=== PATIENT | male | born 1995 | race Caucasian/White ===

== ENCOUNTER 2017-08-13 11:44 | Emergency (ER) | payer SELFPAY ==
[~2017-08-13] VITALS: Ht 180.3 cm; Wt 120.7 kg
[2017-08-13] MEDS ORDERED: NS(*) 0.9% 1000 ML BAG 1,000 ML IV ONE (11:57)
--- NOTE | 2017-08-13 11:59 | ER Report ---
History and Physical Time Seen By MD: 11:58 Hx. of Stated Complaint: upper abdominal pain HPI/ROS 21 year old male h/o gerd on prn ranitadine with upper abd pain x 2 days. stopped caffeine but this did not help. nausea mild pain Allergies: Coded Allergies: Penicillins (Verified Allergy, Intermediate, HIVES, 08/13/17) loracarbef (Verified Allergy, Intermediate, 08/13/17) red dye (Verified Allergy, Unknown, 08/13/17) Home Meds Active Scripts Ondansetron (ZOFRAN ODT) 4 Mg Tab.rapdis, 4 MG PO Q6H Y for NAUSEA/VOMITING, # 20 TAB.SANDRA Prov:YULI MCKEON APRN-Remy 08/13/17 Hydrocodone Bit/Acetaminophen (NORCO 5-325 TABLET) 1 Each Tablet, 1 EACH PO every 4-6 hours for PAIN, #30 TAB Prov:YULI MCKEON APRN-Remy 08/13/17 Reported Medications Ranitidine Hcl (ZANTAC) 150 Mg Tablet, 150 MG PO PRN, TAB 08/13/17 Melatonin (MELATONIN) 1 Mg Tablet, 1 MG PO PRN 08/13/17 Past Medical/Surgical History pancreatitis,2 years ago, gerd Reviewed Nurses Notes: Yes Old Medical Records Reviewed: Yes Hx Smoking: No Exposure to Second Hand Smoke?: No Hx Substance Use Disorder: No Hx Alcohol Use: No Family History of: Other Constitutional Vital Sign - Last 24 Hours 08/13/17 08/13/17 08/13/17 08/13/17 11:57 13:29 13:34 13:49 Temp 98.7 Pulse 100 93 87 Resp 20 B/P (MAP) 143/93 117/76 (90) Pulse Ox 93 92 93 93 O2 Delivery Room Air 08/13/17 08/13/17 08/13/17 08/13/17 14:00 14:04 14:19 14:30 Pulse 83 80 B/P (MAP) 107/61 (76) 128/76 (93) Pulse Ox 93 93 08/13/17 14:48 Pulse 83 Resp 17 B/P (MAP) 129/83 (98) Pulse Ox 92 O2 Delivery Room Air Physical Exam 21-year-old male alert and oriented mild distress HEENT has normocephalic/ atraumatic tympanic membranes are non-reddened throat is non-reddened neck is supple no JVD heart rate is regular no murmurs rubs or gallops lungs clear to auscultation abdomen is obese mild tenderness mid epigastric bowel sounds 4 quadrants moves all extremities no peripheral edema Medical Decision Making Data Points Result Diagram: 08/13/17 1201 08/13/17 1201 Laboratory Hematology Test 08/13/17 11:55 08/13/17 12:01 Urine Color Yellow Urine Clarity Clear Urine pH 6.0 pH (4.8-9.5) Urine Specific [place] 1.025 Urine Protein Negative mg/dL (NEGATIVE) Urine Glucose (UA) Negative mg/dL (NEGATIVE) Urine Ketones Negative mg/dL (NEGATIVE) Urine Blood Trace lysed (NEGATIVE) Urine Nitrite Negative (NEGATIVE) Urine Bilirubin Negative (NEGATIVE) Urine Urobilinogen 0.2 mg/dL (0.2-1.9) Urine Leukocyte Esterase Negative (NEGATIVE) Urine RBC Rare /HPF (0-2/HPF) Urine WBC None /HPF (0-5/HPF) Urine Squamous Epithelial Cells Rare /LPF (</=FEW) Urine Bacteria Negative /HPF (NONE-FEW) Urine Mucus None /HPF (NONE-FEW) Red Blood Count 5.36 M/uL (4.00-5.60) Mean Corpuscular Volume 87.7 fL (80.0-96.0) Mean Corpuscular Hemoglobin 29.8 pg (26.0-33.0) Mean Corpuscular Hemoglobin Concent 34.0 g/dL (32.0-36.0) Red Cell Distribution Width 13.1 % (11.5-14.5) Mean Platelet Volume 8.5 fL (7.2-11.1) Neutrophils (%) (Auto) 61.8 % (39.4-72.5) Lymphocytes (%) (Auto) 27.7 % (17.6-49.6) Monocytes (%) (Auto) 8.0 % (4.1-12.4) Eosinophils (%) (Auto) 1.7 % (0.4-6.7) Basophils (%) (Auto) 0.8 % (0.3-1.4) Nucleated RBC Relative Count (auto) 0.5 /100WBC Neutrophils # (Auto) 7.5 K/uL (2.0-7.4) Lymphocytes # (Auto) 3.4 K/uL (1.3-3.6) Monocytes # (Auto) 1.0 K/uL (0.3-1.0) Eosinophils # (Auto) 0.2 K/uL (0.0-0.5) Basophils # (Auto) 0.1 K/uL (0.0-0.1) Nucleated RBC Absolute Count (auto) 0.07 K/uL Sodium Level 137 mmol/L (137-145) Potassium Level 4.3 mmol/L (3.5-5.0) Chloride Level 103 mmol/L (98-107) Carbon Dioxide Level 26 mmol/L (22-30) Blood Urea Nitrogen 17 mg/dl (9-21) Creatinine 1.10 mg/dl (0.66-1.25) Glomerular Filtration Rate Calc > 60.0 Random Glucose 89 mg/dl (75-110) Lactate 1.4 mmol/L (0.7-2.1) Calcium Level 9.6 mg/dl (8.4-10.2) Total Bilirubin 0.6 mg/dl (0.2-1.3) Aspartate Amino Transf (AST/SGOT) 30 U/L (0-35) Alanine Aminotransferase (ALT/SGPT) 47 U/L (0-56) Alkaline Phosphatase 80 U/L (0-126) Total Protein 7.2 gm/dl (6.3-8.2) Albumin 4.1 g/dl (3.5-5.0) Amylase Level 105 U/L (0-110) Lipase 477 U/L (23-300) Chemistry Test 08/13/17 11:55 08/13/17 12:01 Urine Color Yellow Urine Clarity Clear Urine pH 6.0 pH (4.8-9.5) Urine Specific [place] 1.025 Urine Protein Negative mg/dL (NEGATIVE) Urine Glucose (UA) Negative mg/dL (NEGATIVE) Urine Ketones Negative mg/dL (NEGATIVE) Urine Blood Trace lysed (NEGATIVE) Urine Nitrite Negative (NEGATIVE) Urine Bilirubin Negative (NEGATIVE) Urine Urobilinogen 0.2 mg/dL (0.2-1.9) Urine Leukocyte Esterase Negative (NEGATIVE) Urine RBC Rare /HPF (0-2/HPF) Urine WBC None /HPF (0-5/HPF) Urine Squamous Epithelial Cells Rare /LPF (</=FEW) Urine Bacteria Negative /HPF (NONE-FEW) Urine Mucus None /HPF (NONE-FEW) White Blood Count 12.1 k/uL (4.5-11.0) Red Blood Count 5.36 M/uL (4.00-5.60) Hemoglobin 16.0 g/dL (14.0-18.0) Hematocrit 46.9 % (42.0-52.0) Mean Corpuscular Volume 87.7 fL (80.0-96.0) Mean Corpuscular Hemoglobin 29.8 pg (26.0-33.0) Mean Corpuscular Hemoglobin Concent 34.0 g/dL (32.0-36.0) Red Cell Distribution Width 13.1 % (11.5-14.5) Platelet Count 277 K/uL (150-450) Mean Platelet Volume 8.5 fL (7.2-11.1) Neutrophils (%) (Auto) 61.8 % (39.4-72.5) Lymphocytes (%) (Auto) 27.7 % (17.6-49.6) Monocytes (%) (Auto) 8.0 % (4.1-12.4) Eosinophils (%) (Auto) 1.7 % (0.4-6.7) Basophils (%) (Auto) 0.8 % (0.3-1.4) Nucleated RBC Relative Count (auto) 0.5 /100WBC Neutrophils # (Auto) 7.5 K/uL (2.0-7.4) Lymphocytes # (Auto) 3.4 K/uL (1.3-3.6) Monocytes # (Auto) 1.0 K/uL (0.3-1.0) Eosinophils # (Auto) 0.2 K/uL (0.0-0.5) Basophils # (Auto) 0.1 K/uL (0.0-0.1) Nucleated RBC Absolute Count (auto) 0.07 K/uL Glomerular Filtration Rate Calc > 60.0 Lactate 1.4 mmol/L (0.7-2.1) Calcium Level 9.6 mg/dl (8.4-10.2) Total Bilirubin 0.6 mg/dl (0.2-1.3) Aspartate Amino Transf (AST/SGOT) 30 U/L (0-35) Alanine Aminotransferase (ALT/SGPT) 47 U/L (0-56) Alkaline Phosphatase 80 U/L (0-126) Total Protein 7.2 gm/dl (6.3-8.2) Albumin 4.1 g/dl (3.5-5.0) Amylase Level 105 U/L (0-110) Lipase 477 U/L (23-300) Urinalysis Test 08/13/17 11:55 Urine Color Yellow Urine Clarity Clear Urine pH 6.0 pH (4.8-9.5) Urine Specific [place] 1.025 Urine Protein Negative mg/dL (NEGATIVE) Urine Glucose (UA) Negative mg/dL (NEGATIVE) Urine Ketones Negative mg/dL (NEGATIVE) Urine Blood Trace lysed (NEGATIVE) Urine Nitrite Negative (NEGATIVE) Urine Bilirubin Negative (NEGATIVE) Urine Urobilinogen 0.2 mg/dL (0.2-1.9) Urine Leukocyte Esterase Negative (NEGATIVE) Urine RBC Rare /HPF (0-2/HPF) Urine WBC None /HPF (0-5/HPF) Urine Squamous Epithelial Cells Rare /LPF (</=FEW) Urine Bacteria Negative /HPF (NONE-FEW) Urine Mucus None /HPF (NONE-FEW) ED Course/Re-evaluation ED Course In the emergency room was given a liter normal saline and fentanyl for pain and GI cocktail pain was much better when he was ready to be released will follow up with local primary care physician was given [place] and Zofran for pain and nausea to go home will be on a clear liquid diet pain is relieved Re-evaluation Patient more comfortable able to walk unaided wants to go home will follow up with primary care physician Decision to Disposition Date: Aug 13, 2017 Decision to Disposition Time: 14:55 Depart Departure Latest Vital Signs Vital Signs Date Time Temp Pulse Resp B/P (MAP) Pulse Ox O2 Delivery O2 Flow Rate FiO2 08/13/17 14:48 83 17 129/83 (98) 92 Room Air 08/13/17 11:57 98.7 Impression: Primary Impression: Pancreatitis Condition: Improved Disposition: HOME OR SELF-CARE Referrals: NOVA RAMOS MD 2 Days GASTROENTEROLOGY 2 Days New Scripts Ondansetron (ZOFRAN ODT) 4 Mg Tab.rapdis 4 MG PO Q6H Y for NAUSEA/VOMITING, #20 TAB.SANDRA Prov: YULI MCKEON APRN-Remy 08/13/17 Hydrocodone Bit/Acetaminophen (NORCO 5-325 TABLET) 1 Each Tablet 1 EACH PO every 4-6 hours for PAIN, #30 TAB Prov: YULI MCKEON 08/13/17 Departure Forms: ER Transition Record, Medications Reconciliation, Patient Portal Information Patient Instructions: Clear Liquid Diet (ED), Pancreatitis (ED) Additional Instructions: Medications as instructed follow-up with doctor in 2 days, clear liquid diet until pain resolves YULI MCKEON Aug 13, 2017 11:59
[2017-08-13] MEDS ORDERED: ONDANSETRON 4 MG/2 ML VIAL IVP ONE (12:00)
[2017-08-13] MEDS ORDERED: MELA1TAB23 PO (12:07)
[2017-08-13] MEDS ORDERED: RANI-324 PO (12:07)
[2017-08-13] MEDS ORDERED: ATRO/SCOPOL/HYOSCY/PB 5 ML ELX PO ONE (12:10)
[2017-08-13] MEDS ORDERED: PANTOPRAZOLE SOD(*)40 MG VIAL 80 MG in NS(*) 0.9% 100 ML BAG 100 ML IVPB ONE (12:10)
[2017-08-13] MEDS ORDERED: MAG HYD/AL HYD/SIMETH 30ML UDC PO ONE (12:10)
[2017-08-13] MEDS ORDERED: LIDOCAINE 2% VISC SLN 15ML UDC PO ONE (12:10)
[2017-08-13 12:12] LABS: PLATELET COUNT, AUTOMATED 277 K/uL (150-450)
[2017-08-13] MEDS ORDERED: fentaNYL CITR 100 MCG/2 ML AMP IVP ONE (12:40)
[2017-08-13] MEDS ORDERED: IOPAMIDOL 76% 75 ML INFUS BTL 75 ML ONE (13:13)
[2017-08-13] MEDS ORDERED: NS 0.9% 20 ML SDV 60 ML ONE (13:13)
--- NOTE | 2017-08-13 14:17 | RADIOLOGY IMAGING REPORT ---
[place] [facility] [place] NAME: Damian Price : 1995 MR: [id number] V: [id number] EXAM DATE: ORDERING PHYSICIAN: YULI MCKEON TECHNOLOGIST: [place] [facility] [place] Damian [place] : 1995 Visit/Account:[id number] Date of Sevice: 08/13/2017 ABDOMEN/PELVIS WITH CONTRAST Provided history: pancreatitis Additional pertinent history: none TECHNIQUE: Spiral scan was obtained from the lower chest through the symphysis with intravenous cont rast Contrast dose: 75 mL Isovue 370 intravenously. Source images were reformatted in the coronal and sagittal planes. Additional series performed today: none One of the following dose optimization techniques was utilized in the performance of this exam: Autom ated exposure control; adjustment of the mA and/or kV according to the patient's size; or use of an i terative reconstruction technique. Specific details can be referenced in the facility's radiology CT exam operational policy. COMPARISON STUDIES: none FINDINGS: Lower chest: Negative Liver/biliary: Negative Pancreas: There is very subtle infiltration of fat about the uncinate process of the pancreas which m ay indicate evidence of acute inflammation. Otherwise the pancreas demonstrates normal preservation of lobules, normal enhancement without fluid collection or additional areas of potential inflammation . The splenic vein enhances normally. Pancreatic duct is of normal caliber. No abnormal calcificat ions. Spleen: Negative Adrenal glands: Negative Kidneys / ureters / bladder / genitourinary / retroperitoneum: Negative Bowel / peritoneum / mesenteries: Negative Vessels: negative Lymph nodes: negative Body wall: negative Bones: There are bilateral L5 pars defect without listhesis at this time. 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 IMPRESSION: 1. Subtle findings involving the SA process and surrounding fat of the pancreas which might indicate low-grade pancreatitis. No complications visualized. The duct is of normal caliber. Of note, ther e are no calcified stones in the gallbladder. 2. Bilateral L5 level pars defects without listhesis. Report Dictated By: Luis Carlos Burks MD at 08/13/2017 2:07 PM Report E-Signed By: Luis Carlos Burks MD at 08/13/2017 2:13 PM WSN:[id number]
[2017-08-13] MEDS ORDERED: HYDR-4309 PO (14:43)
[2017-08-13] MEDS ORDERED: ONDA4TAB PO (14:43)
[2017-08-13 14:48] VITALS: BP 129/83
== END 2017-08-13 15:00 | disposition home or self-care (01) ==
LOC: ER 12:20
DX: K85.90 Acute pancreatitis without necrosis or infection, unspecified (principal)
CPT/HCPCS: 74177; 81001; 82150; 83605; 83690; 85025; 96365; 96366; 96375; 99284; C9113; J2405; J3010; J7030; J7050; Q9967; 82040; 82247; 82310; 82374; 82435; 82565; 82947; 84075; 84132; 84155; 84295; 84450; 84460; 84520

== ENCOUNTER 2018-10-09 01:12 | Emergency (ER) | payer BC ==
[~2018-10-09 01:12] MED LIST: HYDR-653 PO; MELA1TAB23 PO; ONDA4TAB PO; RANI-366 PO
[2018-10-09] MEDS ORDERED: DOXY25TA PO (01:38)
[2018-10-09] MEDS ORDERED: ASPIRIN 81 MG CHEW PO ONE (01:50)
[2018-10-09] MEDS ORDERED: ACETAMINOPHEN 325 MG TAB PO ONE (01:50)
--- NOTE | 2018-10-09 01:55 | ER Report ---
History and Physical Time Seen By MD: 01:40 Hx. of Stated Complaint: PATIENT STATES THAT AT WORK, STARTED HAVING SHARP PAIN IN CHEST THAT RADIATES TO HIS JAW. PATIENT CHECKED BLOOD PRESSURE, IT WAS 172/120, INCREASED PULSE RATE AT 130. PATIENT STATES PAIN IN INSPIRATION. PATIENT STATES HEADACHE NOW. PATIENT WAS GIVEN ON SUBLINGUAL NITRO AT WORK. 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 At this time he developed sharp chest pains that radiated to his jaw. Pains were intermittent and lasted seconds but have occurred approximately 10 times in the past 45 minutes. Patient has never had this previously. During this he developed a mild headache located in the back of his head and noted that a wrist blood pressure showed a systolic of 170s. He was given a nitroglycerin by the nurse. At this point, his chest pains improved, though his headache significantly worsened. Now , patient complains of severe headache in the back of his head though not in his neck and does not have chest pain. Patient has had no recent travel, no leg swelling or pain, no history of VTE, no family history of cardiac disease at young age. He does not have a diagnosis of hypertension though does state his blood pressure is typically 140 systolic over 90 diastolic. He does use tobacco, approximately 3-4 cigarettes a day. He denies significant alcohol use. He denies drug use at all. He has a history of Lemierre's syndrome in 2013 but has not had other complications or recent concerning symptoms. Her is no known family history of VTE. REVIEW OF SYSTEMS: Constitutional: No fever, no chills. Eyes: no blurred vision ENT: No sore throat. Cardiovascular: abvoe Respiratory: No cough, no shortness of breath. Gastrointestinal: No abdominal pain, no vomiting. Genitourinary: no dysuria Musculoskeletal: No back pain. Skin: No rashes. Neurological: above Remainder of the 14 system rev: Yes Allergies: Coded Allergies: Penicillins (Verified Allergy, Intermediate, HIVES, 10/09/18) loracarbef (Verified Allergy, Intermediate, 10/09/18) red dye (Verified Allergy, Unknown, 10/09/18) Home Meds Reported Medications Doxylamine Succinate (Nighttime Sleep-Aid) 25 Mg Tablet, 2-3 TAB PO QHS PRN for INSOMNIA 10/09/18 Discontinued Reported Medications Ranitidine Hcl (ZANTAC) 150 Mg Tablet, 150 MG PO PRN, TAB 08/13/17 Melatonin (MELATONIN) 1 Mg Tablet, 1 MG PO PRN 08/13/17 Discontinued Scripts Ondansetron (ZOFRAN ODT) 4 Mg Tab.rapdis, 4 MG PO Q6H PRN for NAUSEA/VOMITING, #20 TAB.SANDRA Prov:YULI MCKEON 08/13/17 Hydrocodone Bit/Acetaminophen (NORCO 5-325 TABLET) 1 Each Tablet, 1 EACH PO every 4-6 hours for PAIN, #30 TAB Prov:YULI MCKEON 08/13/17 Reviewed Nurses Notes: Yes Old Medical Records Reviewed: Yes Hx Smoking: No Exposure to Second Hand Smoke?: No Hx Substance Use Disorder: No Hx Alcohol Use: No Constitutional Vital Sign - Last 24 Hours 10/09/18 01:31 Temp 98.8 Pulse 100 Resp 20 B/P (MAP) 122/88 Pulse Ox 93 O2 Delivery Room Air Physical Exam General Appearance: The patient is alert, has no immediate need for airway protection and no signs of toxicity. Eyes: Pupils equal and round no pallor or injection. ENT, Mouth: Mucous membranes are moist. Respiratory: There are no retractions, lungs are clear to auscultation. Cardiovascular: Regular rate and rhythm. no m/r/g Gastrointestinal: Abdomen is soft and non tender, no masses, bowel sounds normal. Neurological: alert, oriented x 4, no meningismus ,5/5 ms, nl sensation throughout. No gross cn deficits Skin: Warm and dry, no rashes. Musculoskeletal: Neck is supple non tender. Extremities are nontender, nonswollen and have full range of motion. DIFFERENTIAL DIAGNOSIS: After history and physical exam differential diagnosis was considered for chest pain including but not limited to myocardial ischemia, pericarditis pulmonary embolus, chest wall pain, pleural inflammation and pulmonary infectious causes.headache including but not limited to subarachnoid hemorrhage, migraine headache, tension headache and infectious causes such as meningitis, pharyngitis and sinusitis. Medical Decision Making Data Points Result Diagram: 10/09/18 0211 10/09/18 0211 Laboratory Hematology Test 10/09/18 02:11 Red Blood Count 4.96 M/uL (4.00-5.60) Mean Corpuscular Volume 89.3 fL (80.0-96.0) Mean Corpuscular Hemoglobin 30.9 pg (26.0-33.0) Mean Corpuscular Hemoglobin Concent 34.6 g/dL (32.0-36.0) Red Cell Distribution Width 12.9 % (11.5-14.5) Mean Platelet Volume 8.7 fL (7.2-11.1) Neutrophils (%) (Auto) 60.5 % (39.4-72.5) Lymphocytes (%) (Auto) 27.8 % (17.6-49.6) Monocytes (%) (Auto) 9.2 % (4.1-12.4) Eosinophils (%) (Auto) 1.5 % (0.4-6.7) Basophils (%) (Auto) 1.0 % (0.3-1.4) Nucleated RBC Relative Count (auto) 0.0 /100WBC Neutrophils # (Auto) 5.5 K/uL (2.0-7.4) Lymphocytes # (Auto) 2.5 K/uL (1.3-3.6) Monocytes # (Auto) 0.8 K/uL (0.3-1.0) Eosinophils # (Auto) 0.1 K/uL (0.0-0.5) Basophils # (Auto) 0.1 K/uL (0.0-0.1) Nucleated RBC Absolute Count (auto) 0.00 K/uL D-Dimer Quantitative (PE/DVT) 0.40 ug/ml (0-0.50) Sodium Level 138 mmol/L (137-145) Potassium Level 3.8 mmol/L (3.5-5.0) Chloride Level 106 mmol/L (98-107) Carbon Dioxide Level 24 mmol/L (22-30) Blood Urea Nitrogen 23 mg/dl (9-21) Creatinine 1.00 mg/dl (0.66-1.25) Glomerular Filtration Rate Calc > 60.0 Random Glucose 92 mg/dl (75-110) Calcium Level 9.4 mg/dl (8.4-10.2) Total Bilirubin 0.4 mg/dl (0.2-1.3) Aspartate Amino Transf (AST/SGOT) 27 U/L (0-35) Alanine Aminotransferase (ALT/SGPT) 30 U/L (0-56) Alkaline Phosphatase 85 U/L (0-126) Troponin I < 0.012 ng/ml Total Protein 7.6 g/dl (6.3-8.2) Albumin 4.6 g/dl (3.5-5.0) Chemistry Test 10/09/18 02:11 White Blood Count 9.1 k/uL (4.5-11.0) Red Blood Count 4.96 M/uL (4.00-5.60) Hemoglobin 15.3 g/dL (14.0-18.0) Hematocrit 44.2 % (42.0-52.0) Mean Corpuscular Volume 89.3 fL (80.0-96.0) Mean Corpuscular Hemoglobin 30.9 pg (26.0-33.0) Mean Corpuscular Hemoglobin Concent 34.6 g/dL (32.0-36.0) Red Cell Distribution Width 12.9 % (11.5-14.5) Platelet Count 282 K/uL (150-450) Mean Platelet Volume 8.7 fL (7.2-11.1) Neutrophils (%) (Auto) 60.5 % (39.4-72.5) Lymphocytes (%) (Auto) 27.8 % (17.6-49.6) Monocytes (%) (Auto) 9.2 % (4.1-12.4) Eosinophils (%) (Auto) 1.5 % (0.4-6.7) Basophils (%) (Auto) 1.0 % (0.3-1.4) Nucleated RBC Relative Count (auto) 0.0 /100WBC Neutrophils # (Auto) 5.5 K/uL (2.0-7.4) Lymphocytes # (Auto) 2.5 K/uL (1.3-3.6) Monocytes # (Auto) 0.8 K/uL (0.3-1.0) Eosinophils # (Auto) 0.1 K/uL (0.0-0.5) Basophils # (Auto) 0.1 K/uL (0.0-0.1) Nucleated RBC Absolute Count (auto) 0.00 K/uL D-Dimer Quantitative (PE/DVT) 0.40 ug/ml (0-0.50) Glomerular Filtration Rate Calc > 60.0 Calcium Level 9.4 mg/dl (8.4-10.2) Total Bilirubin 0.4 mg/dl (0.2-1.3) Aspartate Amino Transf (AST/SGOT) 27 U/L (0-35) Alanine Aminotransferase (ALT/SGPT) 30 U/L (0-56) Alkaline Phosphatase 85 U/L (0-126) Troponin I < 0.012 ng/ml Total Protein 7.6 g/dl (6.3-8.2) Albumin 4.6 g/dl (3.5-5.0) Coagulation Test 10/09/18 02:11 D-Dimer Quantitative (PE/DVT) 0.40 ug/ml EKG/Imaging EKG Interpretation 12 lead EKG: Rhythm: Normal sinus rhythm [place]: Normal QRS: Normal ST segments: Normal Monitor Interpretation: Normal Sinus Rhythm ED Course/Re-evaluation ED Course 23-year-old male presents with sudden onset sharp chest pains and initially mild headache, followed by more severe headache after he was administered nitroglycerin. Patient has heart score of less than 4 and atypical chest pain, so considered but doubt ACS. His d-dimer is negative, however, he has a border line oxygen saturation of 92-93, and borderline tachycardia as well as no clear etiology of his symptoms, so I elected to CT to rule out pulmonary embolism. His CT shows a very small amount of opacity on the right lower lung. However, he has not had infectious symptoms, so doubt this is significant. It does show a mass within the differential as noted that is likely incidental and finding requires further workup. I have referred him to ENT for follow-up. I considered severe cause of headache, however, his headache and he became concerning after nitroglycerin administration and improved in the ED without neuro deficits. On reassessment, pt is comfortable and we discussed findings at length. Will d/c with SRP's. Decision to Disposition Date: Oct 09, 2018 Decision to Disposition Time: 04:31 Depart Departure Latest Vital Signs Vital Signs Date Time Temp Pulse Resp B/P (MAP) Pulse Ox O2 Delivery O2 Flow Rate FiO2 10/09/18 01:31 98.8 100 20 122/88 93 Room Air Impression: Primary Impression: Chest pain Additional Impression: Mass in neck Condition: Improved Disposition: HOME OR SELF-CARE Referrals: KRISTIN GONZALEZ JR, MD 1 Week Departure Forms: ER Transition Record, Medications Reconciliation, Off Work/School Form, School or Work Release?: Work Number of days to be released: 1 Patient Portal Information Patient Instructions: Acute Headache (ED), Chest Pain (ED) Additional Instructions: I do not find a cause for the symptoms that you presented with. After thorough evaluation it is unlikely, however, that this is serious at this point. However, if your symptoms worsen or you have any concerns please return immediately. As we discussed, your CT did find the following: fluid density mass to the right of the trachea and just below the thyroid. The differential includes cystic thyroid nodule, duplication cyst, lymphatic malformation, cervical thymic cyst. Local mass effect results in mild leftward tracheal deviation and mild tracheal narrowing. I have given you the information for our ENT surgeon who I would like you to follow up with for further evaluation. Please return immediately if you have di fficulty swallowing, breathing, or any concerns. Problem Qualifiers Primary Impression: Chest pain Chest pain type: unspecified Qualified Codes: R07.9 - Chest pain, unspecified BOB HSU MD Oct 09, 2018 01:55
--- NOTE | 2018-10-09 02:22 | EKG ---
FACILITY: [facility] PATIENT NAME: LUPE TOWNSEND : [id number] MR: [id number] V: [id number] EXAM DATE: ORDERING PHYSICIAN: BOB HSU TECHNOLOGIST: HEIDY Hdez Reason : CP Blood Pressure : / mmHG Vent. Rate : 088 BPM Atrial Rate : 088 BPM P-R Int : 168 ms QRS Dur : 090 ms QT Int : 362 ms P-R-T Axes : 029 028 023 degrees QTc Int : 438 ms Normal sinus rhythm Normal ECG No previous ECGs available Confirmed by Emiliano Becker ([id number]) on 10/09/2018 6:18:45 AM Referred By: Confirmed By:Emiliano Watson
[2018-10-09 02:24] LABS: PLATELET COUNT, AUTOMATED 282 K/uL (150-450)
[2018-10-09] MEDS ORDERED: IOPAMIDOL 76% 100 ML INFUS BTL 100 ML ONE (03:13)
[2018-10-09] MEDS ORDERED: NS(*) 0.9% 50 ML BAG 50 ML ONE (03:13)
--- NOTE | 2018-10-09 03:21 | RADIOLOGY IMAGING REPORT ---
FACILITY: [facility] PATIENT NAME: Damian Price : 1995 MR: [id number] V: [id number] EXAM DATE: ORDERING PHYSICIAN: BOB HSU [place]CHN[place] [facility] [place] Damian [place] : 1995 Visit/Account:[id number] Date of Sevice: 10/09/2018 CHEST SINGLE AP HISTORY: Dyspnea. COMPARISON: None available. FINDINGS: Lines/tubes: None. Lungs/pleura: Negative. Heart: Negative. Mediastinum: Negative. Bony structures/body wall: Negative. IMPRESSION: No acute cardiopulmonary process. Report Dictated By: Clovis Hawkins MD at 10/09/2018 3:15 AM Report E-Signed By: Clovis Hawkins MD at 10/09/2018 3:16 AM [id number]
--- NOTE | 2018-10-09 04:18 | RADIOLOGY IMAGING REPORT ---
FACILITY: [facility] PATIENT NAME: Damian Price : 1995 MR: [id number] V: [id number] EXAM DATE: ORDERING PHYSICIAN: BOB HSU TECHNOLOGIST: Location: [facility] - [place] Patient: Damian Price : 1995 Visit/Account:[id number] Date of Sevice: 10/09/2018 EXAMINATION: CTA of the chest with IV contrast HISTORY: Hypoxia. Tachycardia. Chest pain. TECHNIQUE: Pulmonary embolus protocol - Thin-slice axial imaging of the chest was performed during maximal pulmonary arterial opacification with intravenous nonionic iodinated contrast. 3D coronal sla b MIPs and 2D reconstructions in the coronal and sagittal planes were performed to aid in pulmonary e mbolus detection. Tripe Scraper images have been stored on PACS. One of the following dose optimization techniques was utilized in the performance of this exam: Autom ated exposure control; adjustment of the mA and/or kV according to the patient's size; or use of an i terative reconstruction technique. Specific details can be referenced in the facility's radiology C T exam operational policy. CONTRAST: 75 mL of IV [id number] COMPARISON: None available. FINDINGS: CTA CHEST: Please note that this exam is optimized for assessment of the pulmonary arteries and is not intended as a diagnostic study of the thoracic aorta, coronary arteries or venous structures. Angiographic Findings: Pulmonary arteries: There are no filling defects in the main, right, left, lobar, segmental or visual ized sub-segmental branches of the pulmonary arterial system. No intraluminal webs or bronchial elsie aterals. Other vasculature: Negative. Additional non-angiographic findings: Lower neck: 4.1 x 3.7 x 4.5 cm fluid density mass to the right of the trachea and just below the thy roid. Mild leftward tracheal deviation and tracheal narrowing. Lungs / Pleura: Small nodular opacities in the posterior right lung base with mild surrounding grou ndglass opacity. Mediastinum / Ellyn: Negative. Heart / Pericardium: Negative. Lymph nodes: Negative. Musculoskeletal / Body wall: Negative. Upper abdomen: Negative. IMPRESSION: 1. No evidence of acute or chronic pulmonary embolism. 2. Small nodular opacities in the posterior right lung base with mild surrounding groundglass opacity . This is most likely infectious or inflammatory. 3. 4.1 x 3.7 x 4.5 cm fluid density mass to the right of the trachea and just below the thyroid. The differential includes cystic thyroid nodule, duplication cyst, lymphatic malformation, cervical thymi c cyst. Local mass effect results in mild leftward tracheal deviation and mild tracheal narrowing. Report Dictated By: Clovis Hawkins MD at 10/09/2018 3:50 AM Report E-Signed By: Clovis Hawkins MD at 10/09/2018 4:15 AM WSN:[id number]
[2018-10-09 04:30] VITALS: BP 126/80
== END 2018-10-09 04:45 | disposition home or self-care (01) ==
LOC: ER 01:27
DX: R07.9 Chest pain, unspecified (principal); R22.1 Localized swelling, mass and lump, neck
CPT/HCPCS: 71045; 71275; 84484; 85025; 85379; 93005; 99284; J7050; Q9967; 82040; 82247; 82310; 82374; 82435; 82565; 82947; 84075; 84132; 84155; 84295; 84450; 84460; 84520

== ENCOUNTER 2018-11-25 02:37 | Observation (INO) | payer BC ==
[~2018-11-25] VITALS: Ht 177.8 cm; Wt 120.7 kg
[2018-11-25] VITALS (12 sets, daily range): BP systolic 105–139; BP diastolic 60–102
[~2018-11-25 02:37] MED LIST changes: +DOXY25TA PO; +MELA5TAB6 PO
[2018-11-25] MEDS ORDERED: NS 0.9% 20 ML SDV 20 ML ONE (07:09)
[2018-11-25] MEDS ORDERED: REMIFENTANIL HCL 1 MG VIAL ONE (07:20)
[2018-11-25] MEDS ORDERED: PROPOFOL EMUL(*) 10MG/ML 20 ML 20 ML ONE (07:47)
[2018-11-25] MEDS ORDERED: LIDOCAINE MPF 1% 5 ML VIAL ONE (07:47)
[2018-11-25] MEDS ORDERED: KETAMINE HCL 200 MG/20 ML MDV ONE (07:50)
[2018-11-25] MEDS ORDERED: fentaNYL CITR 250 MCG/5 ML AMP ONE (08:06)
[2018-11-25] MEDS: LIDOCAINE/SOD BICARB 8.4% SYR ID ONE ×2 (09:12→09:30)
[2018-11-25] MEDS ORDERED: NORMOSOL R SOLN(*) 1000 ML BAG 1,000 ML IV PRN (09:30)
[2018-11-25] MEDS ORDERED: CLINDAMYCIN(*) 600 MG/NS 50 ML 50 ML IVPB ONE (09:30)
[2018-11-25] MEDS ORDERED: FAMOTIDINE 20 MG TAB PO ONE (09:30)
[2018-11-25] MEDS ORDERED: MIDAZOLAM 2 MG/2 ML VIAL IVP PRN (09:30)
[2018-11-25] MEDS ORDERED: ONDANSETRON 4 MG/2 ML VIAL ONE (09:32)
[2018-11-25] MEDS ORDERED: DEXAMETHASONE SOD PHOS 10MG/ML ONE (09:32)
[2018-11-25] MEDS ORDERED: LIDO/EPI 1% MDV 1:100,000 20ML INFIL ONE (10:14)
[2018-11-25] MEDS ORDERED: LR(*) 1000 ML BAG 1,000 ML IV PRN (10:29)
[2018-11-25] MEDS ORDERED: MORPHINE 2 MG/ML SYR IVP PRN (10:30)
[2018-11-25] MEDS ORDERED: ACETAMINOPHEN 325 MG TAB PO PRN (10:30)
[2018-11-25] MEDS ORDERED: ONDANSETRON 4 MG ODT TABDP SL PRN (10:30)
[2018-11-25] MEDS ORDERED: GLYCOPYRROLATE 1 MG/5 ML INJ ONE (10:40)
[2018-11-25] MEDS ORDERED: ePHEDrine 25 MG/5 ML DISP.SYR IVP ONE (10:40)
[2018-11-25] MEDS ORDERED: fentaNYL CITR 100 MCG/2 ML AMP ONE (12:34)
[2018-11-25] MEDS ORDERED: EPINEPHrine HCL 1 MG/ML AMP ONE (15:43)
[2018-11-25] MEDS: APAP/HYDROCODONE 325/5 TAB PO PRN ×2 (15:48→20:20)
--- NOTE | 2018-11-25 16:58 | OPERATIVE REPORT 1 ---
EVENT DATE: November 25, 2018 SURGEON: Ton Becker MD ANESTHESIOLOGIST: Erick Chandler MD ANESTHESIA: General endotracheal. HAND CANDY MOLDER: Milena Centeno, SHOVEL MECHANIC, CSFA PREOPERATIVE DIAGNOSIS Right thyroid mass. POSTOPERATIVE DIAGNOSIS Right thyroid mass. PROCEDURE PERFORMED Excision of right thyroid mass. INDICATIONS Please refer to the preoperative note. DESCRIPTION OF PROCEDURE The patient was positively identified in the preoperative area. He was accompanied there by his mother. Risks were again explained including, but not limited to, bleeding, infection, injury to the recurrent laryngeal nerve, transient or permanent dysphonia and those associated with anesthesia. He acknowledged understanding those risks. He was then brought back to the operative suite, placed supine on the operating table and anesthesia was administered. Once asleep, the patient was positioned and prepped and draped in the usual sterile fashion. Of note, the laryngeal nerve monitor was applied to the patient and utilized throughout the case. A 5 cm incision was planned in a favorable neck crease over the thyroid gland. This was injected with approximately 2 cc of 1% lidocaine with epinephrine. The aforementioned incision was made with a #15 blade. The underlying subcutaneous tissue was then dissected with Bovie electrocautery. The platysma muscle was identified and divided with Bovie electrocautery. Subplatysmal flaps were elevated superior to the level of the thyroid notch and inferiorly at the level of the sternal notch. Strap musculature was identified and divided along the median raphe. I then elevated the strap musculature off the right thyroid lob. The patient was noted to have a large cystic mass emanating from the inferior pole of the right thyroid gland. I then carefully dissected around the cyst and rotated it medially. It was then from the right thyroid lobe parenchyma. During the dissection, the cystic structure did rupture. This was sent for permanent pathology. The wound was then copiously irrigated with normal saline solution. A Valsalva maneuver was performed. Hemostasis was assumed. A small piece of fibrillar Surgicel was placed. The strap musculature and platysma then were reapproximated with interrupted Chromic stitch. The skin was closed in multi- layer fashion. The patient was then turned to Anesthesia for emergence. ESTIMATED BLOOD LOSS 25 cc. COMPLICATIONS No complications. MTDD
[2018-11-26] MEDS: APAP/HYDROCODONE 325/5 TAB PO PRN (01:57)
[2018-11-26 03:15] VITALS: BP 107/59
[2018-11-26] MEDS ORDERED: LOR5/325 PO (07:35)
[2018-11-26] MEDS ORDERED: CLIN-60 PO (07:35)
--- NOTE | 2018-11-26 07:39 | Short(Outpt) Discharge Summary ---
Discharge Summary Reason for Hosp/Final Diag: (1) Thyroid mass Status: Resolved Hospital Course & Plan: Pt. underwent right thyroid mass excision on day of admission. Pain controlled. Elo reg diet. Departure Discharge to: Home Discharge Instructions Home Meds Active Scripts Hydrocodone Bit/Acetaminophen (HYDROCODON-ACETAMINOPHEN 5-325) 1 Each Tablet, 1 EACH PO Q6H PRN for MILD TO MODERATE PAIN for 7 Days, #10 TAB Prov:KRISTIN GONZALEZ JR, MD 11/26/18 Reported Medications Melatonin (MELATONIN) Unknown Strength Tablet, 6 MG PO QDAY 11/13/18 Diet: Regular Activity: No Heavy Lifting, No Exertion Special Instructions: May shower. Do not soak steris. Follow up 12/02 at 2PM. KRISTIN GONZALEZ JR, MD November 26, 2018 07:39
[2018-11-26 08:41] VITALS: BP 120/74
== END 2018-11-26 08:49 | disposition home or self-care (01) ==
LOC: OR 02:37 → MED 13:45
PROVIDERS: ADMIT Otolaryngology; ATTEND Otolaryngology
DX: E04.1 Nontoxic single thyroid nodule (principal)
CPT/HCPCS: 60200; 88305; G0378; J1100; J2001; J2250; J2270; J2405; J2704; J3010; J3490; J7050; J7120; J0171

== ENCOUNTER 2019-02-03 23:01 | Emergency (ER) | payer BC ==
[~2019-02-03 23:01] MED LIST changes: +CLIN-60 PO; +LOR5/325 PO; +MELA5TAB3 PO; -MELA5TAB6 PO; -RANI-366 PO; +RANI-54 PO
[2019-02-03] MEDS ORDERED: DIPH-464 PO (23:10)
--- NOTE | 2019-02-03 23:15 | ER Report ---
History and Physical Time Seen By MD: 23:12 Hx. of Stated Complaint: PATIENT STATES HE WOKE UP AT 1400 WITH DIARRHEA, THEN WHEN HE GOT TO WORK TONIGHT AT 2200, HE STARTED VOMITING, FEELING DIZZY, LOWER ABDOMINAL PAIN. HPI/ROS CHIEF COMPLAINT: Diarrhea, vomiting HISTORY OF PRESENT ILLNESS: This is a 23-year-old male. He started having some nausea and vomiting earlier this afternoon about 2 PM. Multiple episodes of di arrhea. One episode of vomiting right before coming to the hospital. He has not had a large amount of fluid to drink or food to eat today. He did eat breakfast and then lunch but nothing since. He is feeling dizzy when he stands up. Denies fevers or chills. Has some pain that is mainly in the periumbilical and lower abdomen. This does not radiate. No sick contacts. He does not think he had anything bad to eat or drink but is uncertain. No cough or shortness of breath. No chest pain. Allergies: Coded Allergies: Penicillins (Verified Allergy, Intermediate, HIVES, 02/03/19) loracarbef (Verified Allergy, Intermediate, 02/03/19) red dye (Verified Allergy, Unknown, 02/03/19) Home Meds Reported Medications Diphenhydramine Hcl (DIPHENHYDRAMINE HCL) 25 Mg Capsule, 25 MG PO Q6-8H PRN for ALLERGY SYMPTOMS, CAPSULE 02/03/19 Melatonin (MELATONIN) Unknown Strength Tablet, 6 MG PO QDAY 11/13/18 Reviewed Nurses Notes: Yes Hx Smoking: Yes Smoking Status: Former Smoker Exposure to Second Hand Smoke?: Yes Hx Substance Use Disorder: No Hx Alcohol Use: No Constitutional Vital Sign - Last 24 Hours 02/03/19 02/03/19 02/03/19 02/03/19 23:05 23:06 23:16 23:21 Temp 98.7 Pulse 97 105 104 98 Resp 20 B/P (MAP) 126/91 Pulse Ox 95 93 92 93 O2 Delivery Room Air 02/03/19 02/03/19 02/03/19 02/03/19 23:26 23:30 23:31 23:36 Pulse 92 91 89 B/P (MAP) 129/79 (96) Pulse Ox 94 90 94 02/03/19 02/03/19 02/03/19 02/03/19 23:38 23:39 23:40 23:41 Pulse 90 B/P (MAP) 109/72 (84) 111/75 (87) 108/70 (83) Pulse Ox 90 02/03/19 02/03/19 02/03/19 02/04/19 23:46 23:51 23:56 00:00 Pulse 93 87 88 B/P (MAP) 116/74 (88) Pulse Ox 93 92 93 02/04/19 02/04/19 02/04/19 02/04/19 00:01 00:06 00:11 00:16 Pulse 82 81 82 84 Pulse Ox 88 90 91 92 02/04/19 02/04/19 02/04/19 02/04/19 00:21 00:26 00:42 00:56 Pulse 84 78 87 B/P (MAP) 114/79 (91) Pulse Ox 92 92 93 02/04/19 02/04/19 01:00 01:11 Pulse 85 B/P (MAP) 131/98 (109) Pulse Ox 95 Intake and Output 02/03/19 02/03/19 02/04/19 15:02 23:02 07:02 Intake Total 2000 ml Balance 2000 ml Physical Exam General Appearance: The patient is alert. No acute distress. Eyes: Pupils are equal, round. No pallor, injection or icterus. ENT: Mucous membranes are moist. Normal oral mucosa. Neck: Supple and non tender. Respiratory: Lungs are clear to auscultation. Cardiovascular: Regular rate and rhythm. No murmurs, gallops or rubs. Normal capillary refill. No edema. Gastrointestinal: Abdomen is soft, there is some discomfort in the waldo-emboli: Down into the lower abdomen. Nondistended. No rebound or guarding. Normal active bowel sounds. No costovertebral angle tenderness with percussion. Neurological: Alert and oriented x3. No focal neurologic deficits Skin: Warm and dry. DIFFERENTIAL DIAGNOSIS: After history and physical exam, differential diagnosis was considered for patient with diarrhea and vomiting, likely a viral gastroenteritis versus bad food exposure but we'll look for other possible causes as well and hydrate and give some antiemetic. Medical Decision Making Data Points Result Diagram: 02/03/19 6281 02/03/19 9617 Laboratory Hematology Test 02/03/19 23:17 White Blood Count 10.2 k/uL (4.5-11.0) Red Blood Count 5.26 M/uL (4.00-5.60) Hemoglobin 16.1 g/dL (14.0-18.0) Hematocrit 46.6 % (42.0-52.0) Mean Corpuscular Volume 88.6 fL (80.0-96.0) Mean Corpuscular Hemoglobin 30.6 pg (26.0-33.0) Mean Corpuscular Hemoglobin Concent 34.6 g/dL (32.0-36.0) Red Cell Distribution Width 13.3 % (11.5-14.5) Platelet Count 310 K/uL (150-450) Mean Platelet Volume 8.7 fL (7.2-11.1) Neutrophils (%) (Auto) 65.0 % (39.4-72.5) Lymphocytes (%) (Auto) 25.8 % (17.6-49.6) Monocytes (%) (Auto) 7.3 % (4.1-12.4) Eosinophils (%) (Auto) 1.2 % (0.4-6.7) Basophils (%) (Auto) 0.7 % (0.3-1.4) Nucleated RBC Relative Count (auto) 0.0 /100WBC Neutrophils # (Auto) 6.6 K/uL (2.0-7.4) Lymphocytes # (Auto) 2.6 K/uL (1.3-3.6) Monocytes # (Auto) 0.7 K/uL (0.3-1.0) Eosinophils # (Auto) 0.1 K/uL (0.0-0.5) Basophils # (Auto) 0.1 K/uL (0.0-0.1) Nucleated RBC Absolute Count (auto) 0.00 K/uL Chemistry Test 02/03/19 23:17 Sodium Level 141 mmol/L (137-145) Potassium Level 3.6 mmol/L (3.5-5.0) Chloride Level 105 mmol/L (98-107) Carbon Dioxide Level 23 mmol/L (22-30) Blood Urea Nitrogen 21 mg/dl (9-21) Creatinine 1.00 mg/dl (0.66-1.25) Glomerular Filtration Rate Calc > 60.0 Random Glucose 117 mg/dl (75-110) Calcium Level 10.2 mg/dl (8.4-10.2) Total Bilirubin 0.8 mg/dl (0.2-1.3) Aspartate Amino Transf (AST/SGOT) 30 U/L (0-35) Alanine Aminotransferase (ALT/SGPT) 47 U/L (0-56) Alkaline Phosphatase 81 U/L (0-126) Total Protein 8.0 g/dl (6.3-8.2) Albumin 4.7 g/dl (3.5-5.0) Amylase Level 81 U/L (0-110) Lipase 89 U/L (23-300) Toxicology Test 02/04/19 00:00 Serum Alcohol < 10 mg/dl EKG/Imaging Imaging ACUTE ABDOMEN SERIES 3 VIEW HISTORY: Epigastric abdominal pain, diarrhea, and vomiting for several hours. COMPARISON: Chest x-ray 10/09/2018. CT abdomen pelvis 08/13/2017. TECHNIQUE: PA upright view of the chest, AP supine and AP upright views of the abdomen. FINDINGS: CHEST: The lungs are clear. There is no pneumothorax or pleural effusion. The cardiac and mediastinal silhouettes are within normal limits. Bones and soft tissues are unremarkable. ABDOMEN: The distribution of bowel gas is normal, with bowel in all four quadrants as well as centrally. No free air. No dilated loops of bowel. No acute osseous abnormality. IMPRESSION: 1. No acute cardiopulmonary process. 2. Normal bowel gas pattern without obstruction. Report Dictated By: Myriam Garces at 02/04/2019 12:54 AM ED Course/Re-evaluation Clinical Indication for ER IV: Hydration, IV Access ED Course Labs unremarkable. Patient feels better with Zofran and 2 L of fluid. Reviewed findings with him. Could represent viral gastroenteritis versus food poisoning. Decision to Disposition Date: Feb 04, 2019 Decision to Disposition Time: 01:27 Depart Departure Latest Vital Signs Vital Signs Date Time Temp Pulse Resp B/P (MAP) Pulse Ox O2 Delivery O2 Flow Rate FiO2 02/04/19 01:11 85 95 02/04/19 01:00 131/98 (109) 02/03/19 23:05 98.7 20 Room Air Impression: Primary Impression: Nausea & vomiting Condition: Improved Disposition: HOME OR SELF-CARE Patient Instructions: Acute Nausea and Vomiting (ED) Additional Instructions: Your nausea and vomiting are likely caused by a viral infection or possible food poisoning. Rest and increase fluid intake. Take Zofran 4mg, one every 6 hours as needed for nausea and vomiting. Problem Qualifiers Primary Impression: Nausea & vomiting Vomiting type: unspecified Vomiting Intractability: non-intractable Qualified Codes: R11.2 - Nausea with vomiting, unspecified JAIMEE BLACK MD Feb 03, 2019 23:15
[2019-02-03] MEDS ORDERED: NS(*) 0.9% 1000 ML BAG 1,000 ML IV ONE (23:25)
[2019-02-03] MEDS ORDERED: ONDANSETRON 4 MG/2 ML VIAL IVP ONE (23:25)
[2019-02-03 23:34] LABS: PLATELET COUNT, AUTOMATED 310 K/uL (150-450)
[2019-02-04] MEDS ORDERED: NS(*) 0.9% 1000 ML BAG 1,000 ML IV ONE (00:10)
[2019-02-04 01:00] VITALS: BP 131/98
--- NOTE | 2019-02-04 01:03 | RADIOLOGY IMAGING REPORT ---
FACILITY: [facility] - [place] PATIENT NAME: Damian Price : 1995 MR: [id number] V: [id number] EXAM DATE: ORDERING PHYSICIAN: JAIMEE BLACK TECHNOLOGIST: Location: [facility] - [place] Patient: Damian Price : 1995 Visit/Account:[id number] Date of Sevice: 02/04/2019 ACUTE ABDOMEN SERIES 3 VIEW HISTORY: Epigastric abdominal pain, diarrhea, and vomiting for several hours. COMPARISON: Chest x-ray 10/09/2018. CT abdomen pelvis 08/13/2017. TECHNIQUE: PA upright view of the chest, AP supine and AP upright views of the abdomen. FINDINGS: CHEST: The lungs are clear. There is no pneumothorax or pleural effusion. The cardiac and mediastinal silhouettes are within normal limits. Bones and soft tissues are unremarkable. ABDOMEN: The distribution of bowel gas is normal, with bowel in all four quadrants as well as central ly. No free air. No dilated loops of bowel. No acute osseous abnormality. IMPRESSION: 1. No acute cardiopulmonary process. 2. Normal bowel gas pattern without obstruction. Report Dictated By: Myriam Garces at 02/04/2019 12:54 AM Report E-Signed By: Myriam Garces at 02/04/2019 12:56 AM WSN:[id number]
== END 2019-02-04 02:04 | disposition home or self-care (01) ==
LOC: ER 23:52
DX: R11.2 Nausea with vomiting, unspecified (principal); R19.7 Diarrhea, unspecified; R10.13 Epigastric pain
CPT/HCPCS: 74022; 80320; 82150; 83690; 85025; 96361; 96374; 99284; J2405; J7030; 82040; 82247; 82310; 82374; 82435; 82565; 82947; 84075; 84132; 84155; 84295; 84450; 84460; 84520